=== PATIENT | male | born 1990 | race Caucasian/White ===

== ENCOUNTER 2023-10-14 16:49 | Emergency (ER) | payer OTHER ==
[2023-10-14 16:57] VITALS: RESP 18
[2023-10-14] MEDS ORDERED: methylPREDNISolone SOD SUCCI 125 MG/2 ML VIAL IM ONE (17:12)
[2023-10-14] MEDS ORDERED: KETOROLAC 15 MG/ML 1 ML VIAL IM STA (17:13)
[2023-10-14] MEDS ORDERED: ACETAMINOPHEN TAB 500 MG TAB PO STA (17:13)
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
--- NOTE | 2023-10-14 17:38 | XR ---
EXAMINATION TYPE: XR chest 2V DATE OF EXAM: 10/14/2023 5:34 PM CLINICAL INDICATION:Male, 33 years old with history of r/o fx; COMPARISON: None TECHNIQUE: XR chest 2V Frontal and lateral views of the chest. FINDINGS: Lungs/Pleura: Prominent interstitial lung markings are seen scattered throughout the lungs with sharri ening of the diaphragm and increased lucency of the lung apices. No evidence of focal consolidation, pneumothorax or pleural effusion. Pulmonary vascularity: Unremarkable. Heart/mediastinum: Cardiomediastinal silhouette is unremarkable. Musculoskeletal: No acute osseous pathology. IMPRESSION: 1. No acute cardiopulmonary disease process. 2. COPD changes.
[2023-10-14] MEDS ORDERED: ACET/COD 300 MG/30 MG STARTER PACK 6 TAB BTL PO STA (18:45)
[2023-10-14 19:45] VITALS: BP 116/68; PULSE 90; TEMP 98.9
== END 2023-10-14 19:33 | disposition home or self-care (01) ==
LOC: EC 16:49
DX: S20.211A Contusion of right front wall of thorax, initial encounter (principal); M94.0 Chondrocostal junction syndrome [Tietze]; J40 Bronchitis, not specified as acute or chronic; F17.290 Nicotine dependence, other tobacco product, uncomplicated; Z91.030 Bee allergy status; Z91.018 Allergy to other foods; Z20.822 Contact with and (suspected) exposure to COVID-19; V49.9XXA Car occupant (driver) (passenger) injured in unspecified traffic accident, initial encounter; Y92.410 Unspecified street and highway as the place of occurrence of the external cause
CPT/HCPCS: 87636; 71046; 99284; 96372 ×2; J2930; J1885